=== PATIENT | male | born 1960 | race Caucasian/White ===

== ENCOUNTER → 2017-05-03 | Outpatient (CLI) | payer OTHER, MEDICARE ==
[~2017-05-03] MED LIST: NORCO 325 MG-51 TAB PO
--- NOTE | 2017-05-03 16:01 | RADIOLOGY REPORT PS360 ---
ELBOW-LT-3 VIEWS HISTORY: LEFT ELBOW PAIN ORDERING PHYSICIAN: Sarah Britt APRN PATIENT AGE: 57 years COMPARISON: None FINDINGS: No acute fractures evident. There is minimal osteophyte formation along the coronoid process. There is faint calcification in both the lateral and medial epicondylar region. No displaced fat pad. IMPRESSION: 1. No acute finding. 2. Minimal degenerative change with small osteophyte formation along the coracoid process
== END ==
LOC: RAD 15:30
DX: M25.522 Pain in left elbow (principal)